=== PATIENT | female | born 1985 | race Caucasian/White ===

== ENCOUNTER 2021-05-10 16:39 | Emergency (ER) | payer MEDICAID, SELFPAY ==
[2021-05-10 16:41] VITALS: BP 121/88; PULSE 81; RESP 16; TEMP 37; O2SAT 99; BMI 23.8
[2021-05-10 16:56] VITALS: BP 121/88; PULSE 81; RESP 16; TEMP 37; O2SAT 99
--- NOTE | 2021-05-10 17:19 | EX.ED.VIS.UR ---
HPI HPI - URI History of Present Illness Chief Complaint: Sore Throat Narrative Narrative: 35-year-old female presenting with fatigue, body aches, sore throat. She denies any respiratory symptoms. Patient states that she was carpooling with somebody just tested positive for COVID-19. Patient concerned she has contracted this. ROS ROS ED Constitutional Constitutional ED: Reports chills and subjective Eyes Eyes: Denies blurry vision or change in vision ENT ENT ED: Reports sore throat; Denies rhinorrhea Cardiovascular Cardiovascular: Denies chest pain or palpitations Respiratory/Chest Respiratory/Chest: Denies cough or dyspnea Gastrointestinal Gastrointestinal: Denies abdominal pain, nausea or vomiting Genitourinary Genitourinary ED: Denies dysuria or hematuria Musculoskeletal Musculoskeletal: Reports myalgias; Denies arthralgias or neck pain Integumentary Denies Abrasions or rash Neurologic Neurologic: Denies headache(s), paresthesias or weakness PFSH PFSH Medical History Multiple sclerosis Rheumatoid aortitis Home Medications Unobtainable 05/10/21 [History Last Taken Unknown] Allergy/AdvReac Type Severity Reaction Status Date / Time No Known Allergies Allergy Verified 05/10/21 16:40 Social History Smoking Status: Current every day smoker tobacco type: cigarettes EXAM Physical Exam Const Vital Signs: 05/10/21 16:41 05/10/21 16:56 05/10/21 16:57 Temperature 98.6 F 98.6 F Temperature Source Temporal Temporal Pulse Rate 81 81 Respiratory Rate 16 16 Respiratory Effort Normal Respiratory Pattern Normal Blood Pressure 121/88 H 121/88 H Blood Pressure Mean 99 99 Pulse Ox 99 99 Oxygen Delivery Method Room Air Room Air Positive well nourished General Appearance ED: NAD; Negative for pallor HEENT Reports moist mucous membranes normocephalic and atraumatic External Ear: external ears normal Tympanic Membrane ED: Yes TM's normal bilaterally Tympanic Membrane: TM's normal bilaterally Throat: posterior oropharynx normal Neck no lymphadenopathy and supple Resp normal respiratory effort and clear to auscultation bilaterally Cardio Rate: regular rate Rhythm: regular rhythm GI non-tender Palpation: soft Neuro oriented x3 Sensorium / Orientation: alert Skin General Skin Exam: Negative for pallor Rashes: no rashes MDM MDM MDM Narrative Medical decision making narrative: Patient presenting with mild symptoms of chills, sore throat, body aches. Patient denies any respiratory symptoms. Her vital signs are stable and she is afebrile. She is given Tylenol for her headache and I did clean a rapid Covid antigen. Patient will be discharged home and await results for this. She will quarantine. She is given return precautions. Patient stable at discharge. Impression: 1. Viral syndrome Lab Data Attestation: I reviewed the patient's lab results. Discharge Plan Triage Chief Complaint: Sore Throat ED Provider: Nayan Esparza Dx/Rx/DC Orders Instructions: ED Pharyngitis, Viral Prescriptions: No Action Unobtainable RF: 0 Primary Care Provider: Care Physician,No Primary Referrals: Angeles Kumari MD [STAFF PHYSICIAN] - As Needed Care Physician,No Primary [Primary Care Provider] - Disposition Disposition: Home, Self Care Discharge Date/Time: 05/10/21 17:28
[2021-05-10] MEDS: Acetaminophen 500 MG Tablet 1000 MG PO (17:21)
== END 2021-05-10 17:28 | disposition home or self-care (01) ==
PROVIDERS: Emergency Provider Student in an Organized Health Care Education/Training Program
DX: B34.9 Viral infection, unspecified (principal); F17.210 Nicotine dependence, cigarettes, uncomplicated
CPT/HCPCS: 87426; 99283

== ENCOUNTER 2021-09-17 14:51 | Outpatient (CLI) | payer MEDICAID, SELFPAY ==
[2021-09-17 14:58] VITALS: BP 132/88; PULSE 80; RESP 16; TEMP 36.9; O2SAT 100; BMI 24.7
[2021-09-17] MEDS: 0.9% Saline Lock 10 ML Syringe IV (15:03)
[2021-09-17 15:34] VITALS: BP 131/87; PULSE 72; RESP 16; TEMP 37.2; O2SAT 99
[2021-09-17 16:23] VITALS: BP 116/78; PULSE 69; RESP 16; TEMP 37.1; O2SAT 99
== END 2021-09-17 23:59 | disposition home or self-care (01) ==
LOC: MS3OUT 14:52 → MS3 14:52
PROVIDERS: Referring Provider Nurse Practitioner Adult Health; Visit Provider Nurse Practitioner Adult Health
DX: U07.1 COVID-19 (principal)
CPT/HCPCS: J7050; M0245; Q0245; A4216

== ENCOUNTER 2021-10-29 21:06 | Emergency (ER) | payer MEDICAID, SELFPAY ==
[2021-10-29 21:07] VITALS: BP 146/87; PULSE 79; RESP 16; TEMP 36.1; O2SAT 100; BMI 23.0
--- NOTE | 2021-10-29 21:58 | EDS_ITS ---
HPI History of Present Illness Chief Complaint: Back Informant: patient Narrative Narrative: Patient presents with back pain on the right paraspinal area. She states it will radiate sometimes to the right hip but she sometimes has right hip pain anyway from arthritis it was not sure if this is radiation or just her hip pain. She has no bowel or bladder dysfunction. She has had incontinence because of her MS in the past but is not having those symptoms now. She has had back issues in the past. She has either a disc abnormality seen on an MRI about 2 years ago. She gets intermittent pain. She does not have any definite injury recently. She did have an episode at work recently where she has to lift the bar that is about 80 pounds. Somebody else lift the other end. That person kind of dropped it and it twisted her. But she did not have acute pain. The pain is worse if she moves or twists. If she stands on her left leg and lifts her right it makes the pain worse on her right back but she is able to do it. There is no weakness. No radicular symptoms. No fevers or chills. No fall or impact trauma. She tried [id number] Tylenol Motrin without help. [facility] Medical History Acute maxillary sinusitis, unspecified COVID-19 DDD (degenerative disc disease), lumbar Encounter for screening for COVID-19 Multiple sclerosis Rheumatoid aortitis Home Medications cyclobenzaprine 10 mg PO BID PRN #10 tab 10/29/21 [Rx Last Taken Unknown] naproxen 500 mg PO BID #14 tab 10/29/21 [Rx Last Taken Unknown] oxycodone-acetaminophen [Percocet] 1 tab PO Q6H PRN 3 Days #10 tab 10/29/21 [Rx Last Taken Unknown] Allergy/AdvReac Type Severity Reaction Status Date / Time No Known Allergies Allergy Verified 10/29/21 21:08 Social History Smoking Status: Current every day smoker tobacco type: cigarettes ROS ROS ED Constitutional Constitutional ED: Denies chills, fever(s) or subjective ENT ENT ED: Denies rhinorrhea or sore throat Cardiovascular Cardiovascular: Denies chest pain or palpitations Respiratory/Chest Respiratory/Chest: Denies dyspnea Gastrointestinal Gastrointestinal: Reports other; Denies abdominal pain, constipation, diarrhea, melena, nausea or vomiting Genitourinary Genitourinary ED: Denies dysuria, hematuria or urinary frequency Musculoskeletal Musculoskeletal: Reports back pain; Denies neck pain Integumentary Denies rash Neurologic Neurologic: Denies paresthesias or weakness Endocrine Endocrinology: Denies polydipsia or polyuria Hematologic/Lymphatic Hematologic/Lymphatic: Denies easy bleeding or easy bruising Allergic/Immunologic Allergic/Immunologic ED: Denies urticaria EXAM Physical Exam Const Vital Signs: 10/29/21 21:07 Temperature 97 F L Temperature Source Temporal Pulse Rate 79 Respiratory Rate 16 Blood Pressure 146/87 H Blood Pressure Mean 106 Pulse Ox 100 Oxygen Delivery Method Room Air Positive well nourished and well developed General Appearance ED: well developed and NAD HEENT Reports moist mucous membranes Negative for trauma Eyes General Eye ED: Negative for pale conjunctiva or scleral icterus Neck no JVD Resp normal respiratory effort and clear to auscultation bilaterally Cardio regular rate, regular rhythm and no murmurs GI normal to inspection, nondistended, normoactive bowel sounds, soft to palpation, non-tender and non-distended Back/Spine normal to inspection Back/Spine Narrative: Patient has paraspinal tenderness at approximately L3 or 4. It is all on the right side. There is some mild firmness of the muscle layer. No visible abnormality. No mass. No rash. If she stays still the pain is not bad. But if she moves or twist it is exacerbated. Extremity normal to inspection General Extremety ED: Negative for edema or tenderness General Extremity: Negative for edema Neuro Neuro Narrative: Patient has normal sensation and strength. She has a somewhat antalgic gait but there is no weakness. Reflexes are normal. Sensation is normal. No sign of neurologic deficit by history or exam. Deep Tendon Reflexes: Rt Patellar (L4): 2+, Lt Patellar (L4): 2+, Rt Ankle (S1): 2+ and Lt Ankle (S1): 2+ Deep Tendon Reflexes Back: Rt Patellar (L4): 2+, Lt Patellar (L4): 2+, Rt Ankle (S1): 2+ and Lt Ankle (S1): 2+ Psych mental status grossly normal Skin no rashes or lesions noted and no wounds MDM MDM MDM Narrative Medical decision making narrative: Patient has exam and history consistent with myofascial strain and spasm. She will be treated for this. I did do an online prescribing report. She has no controlled substances at all. Patient has no red flags of back pain. I do not think imaging or blood work is necessary. We did discuss returning with worsening pain, any weakness numbness tingling bowel or bladder dysfunction. Discharge Plan Triage Chief Complaint: Back ED Provider: Mark Oconnell Dx/Rx/DC Orders Clinical Impression: Lumbar strain Instructions: ED Back Spasm, No Trauma, ED Back Sprain/Strain Prescriptions: New cyclobenzaprine 10 mg tablet 10 mg PO BID PRN (Reason: muscle spasm) Qty: 10 RF: 0 oxycodone-acetaminophen [Percocet] 5-325 mg tablet 1 tab PO Q6H PRN (Reason: pain) 3 Days Qty: 10 RF: 0 naproxen 500 MG tablet 500 mg PO BID Qty: 14 RF: 0 Primary Care Provider: Care Physician,No Primary Referrals: Lexi Hong MD [STAFF PHYSICIAN] - 3-5 Days if not improving Care Physician,No Primary [Primary Care Provider] - Disposition Disposition: Home, Self Care
[2021-10-29] MEDS: oxyCODONE 5 MG Tablet PO (22:22)
[2021-10-29] MEDS: cycloBENZAPRine HCl 10 MG Tablet PO (22:22)
[2021-10-29 22:26] VITALS: BP 143/75; PULSE 96; RESP 15; O2SAT 98
== END 2021-10-29 22:26 | disposition home or self-care (01) ==
LOC: ED 22:08
PROVIDERS: Emergency Provider Emergency Medicine; Visit Provider Emergency Medicine
DX: S39.012A Strain of muscle, fascia and tendon of lower back, initial encounter (principal); G35 Multiple sclerosis; M06.9 Rheumatoid arthritis, unspecified; X58.XXXA Exposure to other specified factors, initial encounter; M62.830 Muscle spasm of back; M16.11 Unilateral primary osteoarthritis, right hip; F17.210 Nicotine dependence, cigarettes, uncomplicated; Z86.16 Personal history of COVID-19
CPT/HCPCS: 99283

== ENCOUNTER 2021-11-13 19:46 | Emergency (ER) | payer MEDICAID, SELFPAY ==
[2021-11-13 19:47] VITALS: BP 137/86; PULSE 105; RESP 18; TEMP 37.3; O2SAT 98; BMI 23.0
[2021-11-13] MEDS: Acetaminophen 500 MG Tablet 1000 MG PO (22:00)
--- NOTE | 2021-11-13 22:07 | RAD_ITS ---
STUDY: X-RAY CHEST REASON FOR EXAM: Female, 36 years old. Cough TECHNIQUE: AP portable COMPARISON: None. FINDINGS: The lungs are clear and expanded. There is no demonstrated pleural abnormality. Normal size heart. Normal mediastinum and pia. Normal visualized pulmonary arteries. Normal visualized aortic arch and descending thoracic aorta. Normal visualized thoracic spine. Normal visualized ribs, clavicles, and shoulders. There is no demonstrated abnormality of the visualized soft tissue structures of the upper abdomen. RAD/Chest 1 View (Portable) IMPRESSION: Normal x-ray examination of the chest. Electronically Signed: Sheldon Holt MD at 22:26 EDT ,
--- NOTE | 2021-11-13 23:14 | EX.ED.VIS.UR ---
HPI HPI - URI History of Present Illness Chief Complaint: Cough Informant: patient Onset/Context/Timing Onset: Days (4) Context: Gradual Onset Timing: Continuous Quality: Aching Location: Generalized Worsened by: - (Nothing) Relieved by: - (Nothing) Associated Symptoms Associated Symptoms: Positive for Headache, Sinus Pressure, Myalgias, Diarrhea, Chest Pain and Nonproductive cough; Negative for Nasal Congestion, Nausea, Vomiting and Shortness of Breath Narrative Narrative: Patient presents with fever and sore throat that has been getting worse over the past 4 days. Patient admits to some general myalgias. Patient admits to a headache and sinus pressure. Patient denies any nausea or vomiting. Patient states she has been having some diarrhea. Patient denies any shortness of breath but admits to a nonproductive cough. Patient also admits to some pain in her chest. Patient states her fever was up to 101.2 at home. Patient also admits to a sore throat. ROS ROS ED Constitutional Constitutional ED: Reports fever(s); Denies chills Eyes Eyes: Denies blurry vision or change in vision ENT ENT ED: Reports sore throat; Denies rhinorrhea Cardiovascular Cardiovascular: Reports chest pain; Denies palpitations Respiratory/Chest Respiratory/Chest: Reports cough; Denies dyspnea Gastrointestinal Gastrointestinal: Reports diarrhea; Denies nausea or vomiting Genitourinary Genitourinary ED: Denies dysuria or hematuria Musculoskeletal Musculoskeletal: Reports myalgias and neck pain; Denies back pain Integumentary Denies abscess or rash Neurologic Neurologic: Reports headache(s); Denies weakness Allergic/Immunologic Allergic/Immunologic ED: Denies mouth swelling or urticaria PFSH PFS Medical History (Updated 11/13/21 @ 23:[address] Boaz Sifuentes DO) Acute maxillary sinusitis, unspecified COVID-19 DDD (degenerative disc disease), lumbar Encounter for screening for COVID-19 Multiple sclerosis Rheumatoid aortitis Allergy/AdvReac Type Severity Reaction Status Date / Time No Known Allergies Allergy Verified 11/13/21 19:48 Surgical History (Updated 11/13/21 @ 23:[address] Boaz Sifuentes DO) History of hysterectomy Social History Smoking Status: Light Smoker (<10/day) EXAM Physical Exam Const Vital Signs: 11/13/21 19:47 11/13/21 22:42 Temperature 99.1 F Temperature Source Temporal Pulse Rate 105 H Respiratory Rate 18 Respiratory Effort Normal Non-Labored Respiratory Depth Normal Respiratory Pattern Normal Blood Pressure 137/86 H Blood Pressure Mean 103 Pulse Ox 98 Oxygen Delivery Method Room Air Positive well nourished and well developed General Appearance ED: well developed and NAD HEENT Reports moist mucous membranes Throat: posterior oropharynx normal Neck supple and no JVD Resp normal respiratory effort and clear to auscultation bilaterally Cardio Rate: regular rate Rhythm: regular rhythm GI non-tender Palpation: soft Neuro oriented x3, CN's II-XII intact bilaterally and no sensory deficits noted Sensorium / Orientation: alert Motor Exam: strength 5/5 throughout Psych mental status grossly normal MDM MDM MDM Narrative Medical decision making narrative: Patient was given a dose of Tylenol here. Influenza A and B swabs were negative. COVID-19 rapid antigen was obtained and was negative. Portable 1 view chest x-ray was obtained. On my interpretation, lung pepe are clear. There is normal cardiac silhouette. Bony thorax is normal. There is no acute process noted. Radiologist also interpreted the x-ray and agrees. Patient was advised of her findings. Patient was advised that this is most likely a viral upper respiratory infection. Patient was instructed to continue Tylenol as needed for pain or fever. Patient was instructed to follow-up with her primary care physician in 5 to 7 days. Patient understood and was agreeable with the plan. All questions were answered. Radiography Diagnostic Testing: Clinical Impression(s) from Imaging Studies Chest X-Ray 11/13/21 22:07 IMPRESSION: Normal x-ray examination of the chest. Electronically Signed: Sheldon Holt MD at 22:26 EDT Reading Location ID and State: [facility] / [place] , Service support , Discharge Plan Triage Chief Complaint: Cough ED Provider: Boaz Sifuentes Dx/Rx/DC Orders Clinical Impression: Viral URI Instructions: ED URI, Viral, No Abx (Adult) Primary Care Provider: Care Physician,No Primary Referrals: Campbell Neville MD [STAFF PHYSICIAN] - 5-7 Days Care Physician,No Primary [Primary Care Provider] - Disposition Disposition: Home, Self Care
[2021-11-13 23:28] VITALS: PULSE 87; RESP 16; O2SAT 99
== END 2021-11-13 23:29 | disposition home or self-care (01) ==
PROVIDERS: Emergency Provider Emergency Medicine; Visit Provider Emergency Medicine
DX: J06.9 Acute upper respiratory infection, unspecified (principal); G35 Multiple sclerosis; M06.9 Rheumatoid arthritis, unspecified; F17.200 Nicotine dependence, unspecified, uncomplicated; R19.7 Diarrhea, unspecified; Z86.16 Personal history of COVID-19; M51.36 Other intervertebral disc degeneration, lumbar region
CPT/HCPCS: 71045; 87428; 99282

== ENCOUNTER 2022-03-11 14:53 | Emergency (ER) | payer MEDICAID, SELFPAY ==
[2022-03-11 14:54] VITALS: BP 137/87; PULSE 84; RESP 16; TEMP 36.3; O2SAT 100; BMI 21.2
[2022-03-11 15:09] LABS: Bacteria 0 SEEN /hpf (None Seen); Mucous, Urine 0 SEEN /hpf (<or=2+); Red Blood Cells-Urine 0 SEEN /hpf (0-5)
[2022-03-11 15:13] LABS: Color, Urine Yellow (Yellow); Glucose, Dipstick Normal (Normal); Ketone-Dipstick Negative (Negative); Leukocyte Esterase-Dipstick 25 /ul (Negative); Nitrite-Dipstick Negative (Negative); Occult Blood-Urine Negative /ul (Negative); Protein-Dipstick 30 mg/dl (Negative); Urine Bilirubin Dipstick Negative (Negative); Urine Clarity Sl. Cloudy (Clear); Urine Urobilinogen Normal (Normal)
[2022-03-11 15:22] LABS: Squamous Epithelial Cells - UA 0-5 SEEN /hpf (5-10); White Blood Cells 0-5 SEEN /hpf (0-5)
[2022-03-11 15:32] LABS: Absolute Lymphocyte Count 2.18 X10^3/uL (0.83-4.51); Absolute Neutrophil Count 4.4 X10^3/uL (2.0-7.7); Basophil# 0.03 X10^3/uL; Basophil% 0.4 % (0-1); Eosinophil# 0.07 X10^3/uL; Hematocrit 40.4 % (37-47); Hemoglobin 13.5 g/dL (12.0-15.0); Lymphocyte # 2.18 X10^3/ul (0.83-4.51); Lymphocyte % 30.7 % (19-41); Mean Corp Hgb Conc 33.4 g/dL (32-36); Mean Corpuscular Hgb 30.3 pg (27.0-32.0); Mean Corpuscular Volume 90.8 fL (81-99); Mean Platelet Vol. 10.3 fl (6.2-12.0); Monocyte% 5.6 % (0-10); NRBC Flagged by Analyzer 0 % (0-5); Neutrophil # 4.42 X10^3/uL (2.7-7.7); Neutrophil % 62.2 % (47-70); Platelet Count 211 K/mm3 (150-450); RBC Distribution Width CV 12.2 % (11.6-14.6); RBC Distribution Width SD 40.9 fl (35.1-43.9); Red Blood Count 4.45 M/mm3 (4.2-5.4); White Blood Count 7.1 K/mm3 (4.4-11.0)
[2022-03-11 15:50] LABS: Anion Gap 5 (5-15); BUN 12 mg/dL (7-18); BUN/Creat Ratio 15.8 RATIO (10-20); Calcium,Total 9.4 mg/dL (8.5-10.1); Chloride 107 mmol/L (98-107); Creatinine, Serum 0.76 mg/dL (0.55-1.02); EST Glomerular Filtration Rate 91 mL/min (>60); Est Glom Filt Rate - Afr Amer 110 mL/min (>60); Estimated Creatinine Clearance 83.84 ml/min; Glucose 81 mg/dL (74-106); Potassium 3.7 mmol/L (3.5-5.1); Sodium Level 140 mmol/L (136-145)
[2022-03-11 15:52] LABS: Internal QC Validated? YES +Cl - CLEAR BKGD; Pregnancy, Serum, hCG Quali. NEGATIVE Negative
--- NOTE | 2022-03-11 16:10 | CT_ITS ---
STUDY: CT ABDOMEN AND PELVIS WITH CONTRAST REASON FOR EXAM: Female, 36 years old. abdominal pain -- left side/llq RADIATION DOSAGE (If Supplied By Facility): CTDIvol = ( 11.86 ) mGy, DLP = ( 350.85 ) mGycm TECHNIQUE: Transaxial images were obtained from the dome of the diaphragm to the symphysis pubis without oral contrast. IV 100mL Isovue-370 was administered. Sagittal and coronal images were reconstructed. Individualized dose optimization techniques were used for this CT. COMPARISON: None. FINDINGS: The visualized lung bases are unremarkable. The visualized portions of the heart are within normal limits. Normal liver. Normal gallbladder and extrahepatic biliary system. Normal spleen. Normal pancreas. Normal bilateral adrenal glands. Normal right kidney. Normal left kidney. Normal visualized stomach. Normal small intestine. Normal colon. The appendix is visualized and appears normal. Normal abdominal aorta. Normal inferior vena cava. Normal retroperitoneum. Normal urinary bladder. Normal abdominal wall. Mild levoscoliosis of the lumbar spine. CT/Abdomen/Pelvis W IV Cont ONLY IMPRESSION: Normal enhanced CT of the abdomen and pelvis. Electronically Signed: Gary Gao MD at 16:58 EDT ,
--- NOTE | 2022-03-11 16:13 | EDS_ITS ---
HPI HPI - GI History of Present Illness Chief Complaint: Abd Pain Informant: patient Narrative Narrative: Presenting with nonbloody diarrhea for past 8 days. Reports 3-4 episodes a day. No fever. Abdominal pain started 6 days ago left side. She went to urgent care was told viral syndrome. She had vomiting that day. She provided Zofran last use was yesterday. Has been no vomiting. No recent antibiotics. No abnormal foods, no travel. Reported had similar symptoms with diverticulitis 2 years ago. She told this to the [facility]. She was told to do clear liquids and then light diet over 72 hours. Pain is persistent. Pain worse with movement. Partial hysterectomy in the past. No colonoscopies. History of multiple sclerosis on Copaxone. Denies urinary symptoms. Prior similar symptoms: Yes PFSH PFSH Medical History Acute maxillary sinusitis, unspecified COVID-19 DDD (degenerative disc disease), lumbar Encounter for screening for COVID-19 Multiple sclerosis Rheumatoid aortitis Home Medications glatiramer 20 mg/mL subcutaneous syringe (Copaxone) 20 mg subcut DAILY 03/11/22 [History Last Taken Unknown] hyoscyamine sulfate 0.125 mg sublingual tablet (Levsin/SL) 0.125 mg PO TID PRN abdominal discomfort #10 tabs 03/11/22 [Rx Last Taken Unknown] ondansetron 4 mg disintegrating tablet 4 mg PO Q6H PRN nausea and vomiting #10 tabs 03/11/22 [Rx Last Taken Unknown] Allergy/AdvReac Type Severity Reaction Status Date / Time No Known Allergies Allergy Verified 03/11/22 14:53 Surgical History History of hysterectomy Social History Smoking Status: Light Smoker (<10/day) ROS ROS ED Constitutional Constitutional ED: Denies chills, fever(s) or sweats Eyes Eyes: Denies change in vision ENT ENT ED: Denies dysphagia or sore throat Cardiovascular Cardiovascular: Denies chest pain, leg edema, palpitations or racing heartbeat Respiratory/Chest Respiratory/Chest: Denies cough, dyspnea or dyspnea on exertion Gastrointestinal Gastrointestinal: Reports abdominal pain, diarrhea and nausea; Denies vomiting Genitourinary Genitourinary ED: Denies dysuria, hematuria or urinary frequency Musculoskeletal Musculoskeletal: Denies back pain, extremity pain or neck pain Integumentary Denies rash or wounds Neurologic Neurologic: Denies headache(s), paresthesias or weakness EXAM Physical Exam Const Vital Signs: 03/11/22 14:54 03/11/22 16:20 03/11/22 16:53 Temperature 97.3 F L 97.3 F L Temperature Source Temporal Temporal Pulse Rate 84 84 73 Respiratory Rate 16 16 19 H Blood Pressure 137/87 H 137/87 H 129/84 H Blood Pressure Mean 103 99 Pulse Ox 100 100 99 Oxygen Delivery Method Room Air Room Air Room Air Positive well nourished and well developed General Appearance ED: well developed and NAD HEENT Reports dry mucous membranes normocephalic and atraumatic Mouth ED: Yes dry mucous membranes Mouth: dry mucous membranes Eyes PERRL, EOMs intact bilaterally and conjunctivae normal General Eye ED: Yes normal appearance of both eyes Neck no lymphadenopathy and supple General: Negative for tenderness Chest Wall Chest: Negative for tenderness Resp normal respiratory effort and normal air movement Effort and Inspection: symmetric chest movement; Negative for respiratory distress Cardio regular rate, regular rhythm and no murmurs Peripheral Pulses: pulses 2+ throughout GI normal to inspection, nondistended, normoactive bowel sounds GI Narrative: Tender palpation left mid abdomen and left lower quadrant. Palpation: Negative for guarding or rebound tenderness present Back/Spine no CVA tenderness and no thoracic nor lumbar tenderness Extremity normal to inspection General Extremety ED: Negative for edema or tenderness General Extremity: Negative for edema Neuro oriented x3 and no sensory deficits noted Sensorium / Orientation: awake and alert Skin no rashes or lesions noted and no wounds MDM MDM MDM Narrative Medical decision making narrative: labs noted from triage, white count normal, normal electrolytes urine 25 leuks likely. She had a partial hysterectomy previously. She is tender palpation left mid left lower quadrant. She had dry mucosal membranes. We will give IV fluids, Zofran morphine we will obtain a CT. I will add a lipase and liver enzymes for further evaluation. Stools will be collected if she is able to give a sample. Work-up negative. CT scan shows no acute process normal appendix. She had increasing pain, she was treated with Levsin. On reevaluation minimal pain on exam compared to previous. She is unable to give a stool sample. With a negative CT after 8 days of symptoms likely not diverticulitis. She is contin uing prescription for Zofran and Levsin. She has had diverticulitis 2 years ago without follow-up she is given GI for follow-up. She is given a PCP for follow- up. Strict return precautions. All questions were answered. Lab Data Attestation: I reviewed the patient's lab results. Labs: Laboratory Results - last 24 hr 03/11/22 03/11/22 03/11/22 15:05 15:15 15:15 WBC 7.1 RBC 4.45 Hgb 13.5 Hct 40.4 MCV 90.8 MCH 30.3 MCHC 33.4 RDW Std Deviation 40.9 RDW Coeff of [place] 12.2 Plt Count 211 MPV 10.3 Immature Gran % (Auto) 0.100 Neut % (Auto) 62.2 Lymph % (Auto) 30.7 [place] % (Auto) 5.6 Eos % (Auto) 1.0 Baso % (Auto) 0.4 Absolute Neuts (auto) 4.4 Absolute Lymphs (auto) 2.18 Nucleated RBC % 0 Sodium 140 Potassium 3.7 Chloride 107 Carbon Dioxide 28.0 Anion Gap 5 BUN 12 Creatinine 0.76 Estim Creat Clear Calc 83.84 Est GFR (MDRD) Af Amer 110 Est GFR (MDRD) Non-Af 91 BUN/Creatinine Ratio 15.8 Glucose 81 Calcium 9.4 Total Bilirubin Direct Bilirubin AST ALT Alkaline Phosphatase Total Protein Albumin Globulin Lipase Serum , Qual Urine Color Yellow Urine Clarity Sl. Cloudy Urine pH 6.0 Ur Specific [place] 1.020 Urine Protein 30 H Urine Glucose (UA) Normal Urine Ketones Negative Urine Occult Blood Negative Urine Nitrite Negative Urine Bilirubin Negative Urine Urobilinogen Normal Ur Leukocyte Esterase 25 H Urine RBC 0 SEEN Urine WBC 0-5 SEEN Ur Squamous Epith Cells 0-5 SEEN Urine Bacteria 0 SEEN Urine Mucus 0 SEEN 03/11/22 03/11/22 15:15 15:15 WBC RBC Hgb Hct MCV MCH MCHC RDW Std Deviation RDW Coeff of [place] Plt Count MPV Immature Gran % (Auto) Neut % (Auto) Lymph % (Auto) [place] % (Auto) Eos % (Auto) Baso % (Auto) Absolute Neuts (auto) Absolute Lymphs (auto) Nucleated RBC % Sodium Potassium Chloride Carbon Dioxide Anion Gap BUN Creatinine Estim Creat Clear Calc Est GFR (MDRD) Af Amer Est GFR (MDRD) Non-Af BUN/Creatinine Ratio Glucose Calcium Total Bilirubin 0.50 Direct Bilirubin 0.15 AST 14 L ALT 23 Alkaline Phosphatase 58 Total Protein 7.7 Albumin 4.6 Globulin 3.1 Lipase 107 Serum , Qual NEGATIVE Urine Color Urine Clarity Urine pH Ur Specific [place] Urine Protein Urine Glucose (UA) Urine Ketones Urine Occult Blood Urine Nitrite Urine Bilirubin Urine Urobilinogen Ur Leukocyte Esterase Urine RBC Urine WBC Ur Squamous Epith Cells Urine Bacteria Urine Mucus Radiography Diagnostic Testing: Clinical Impression(s) from Imaging Studies Abdomen/Pelvis CT 03/11/22 16:10 IMPRESSION: Normal enhanced CT of the abdomen and pelvis. Electronically Signed: Gary Gao MD at 16:58 EDT , Discharge Plan Triage Chief Complaint: Abd Pain ED Provider: Conor Rose Dx/Rx/DC Orders Clinical Impression: Abdominal pain, Diarrhea, Hx of diverticulitis of colon, Multiple sclerosis Instructions: Abdominal Pain, ED Diarrhea, Unknown Cause Prescriptions: New hyoscyamine sulfate [Levsin/SL] 0.125 mg tablet, sublingual 0.125 mg PO TID PRN (Reason: abdominal discomfort) Qty: 10 0RF ondansetron 4 mg tablet,disintegrating 4 mg PO Q6H PRN (Reason: nausea and vomiting) Qty: 10 0RF No Action glatiramer [Copaxone] 20 mg/mL Syringe 20 mg SUBCUT DAILY Primary Care Provider: Care Physician,No Primary Referrals: Boaz Wagoner MD [STAFF PHYSICIAN] - 3-5 Days if not improving Anthony Rodriguez DO [STAFF PHYSICIAN] - 1-2 Weeks Care Physician,No Primary [Primary Care Provider] - Activity Restrictions/Additional Instructions: Your abdominal labs are all normal. CT scan abdomen pelvis shows no acute process. Continue oral fluids for hydration. Monitor symptoms. Take medicines as needed. Follow-up with the PCP and GI as an outpatient. Return if any worsening symptoms. Disposition Disposition: Home, Self Care
[2022-03-11] MEDS: 0.9% Normal Saline 1,000 ML 1000 ML IV (16:18)
[2022-03-11] MEDS: Ondansetron 4 MG/2 ML Vial IV (16:18)
[2022-03-11] MEDS: Morphine 4 MG/ML Syringe IV (16:18)
[2022-03-11 16:20] VITALS: BP 137/87; PULSE 84; RESP 16; TEMP 36.3; O2SAT 100
[2022-03-11 16:47] LABS: AST(SGOT) 14 U/L (15-37); Alanine Aminotransfer ALT/SGPT 23 U/L (13-56); Albumin, Serum 4.6 g/dL (3.2-5.0); Alkaline Phosphatase 58 U/L (45-117); Bilirubin, Direct 0.15 mg/dL (0.00-0.30); Globulin 3.1 g/dL (2.2-4.2); Lipase 107 U/L (73-393); Protein, Total 7.7 g/dL (6.4-8.2)
[2022-03-11 16:53] VITALS: BP 129/84; PULSE 73; RESP 19; O2SAT 99
[2022-03-11] MEDS: Hyoscyamine Sulfate 0.125 MG Tablet SL (18:23)
== END 2022-03-11 19:22 | disposition home or self-care (01) ==
PROVIDERS: Emergency Provider Emergency Medicine; Visit Provider Emergency Medicine
DX: R10.814 Left lower quadrant abdominal tenderness (principal); G35 Multiple sclerosis; G89.29 Other chronic pain; R19.7 Diarrhea, unspecified; R11.10 Vomiting, unspecified; F17.200 Nicotine dependence, unspecified, uncomplicated; Z90.710 Acquired absence of both cervix and uterus
CPT/HCPCS: 74177; 80048; 80076; 81001; 83690; 84703; 85025; 96361; 96374; 96375; 99283; J7030; Q9967; A4216; J2405